=== PATIENT | female | born 1945 | race Two or more races ===

== ENCOUNTER 2019-11-17 05:10 | Emergency (ER) | payer OTHER, MEDICAID ==
[~2019-11-17] VITALS: Ht 154.9 cm; Wt 73.0 kg
[~2019-11-17 05:10] MED LIST: CHOL20007 PO; CLOP75TA28 PO; ESCI10TA53 PO; HYDR25TA4 PO; LEVO125T7 PO; LISI40TA; POTA10TA51 PO; SIMV-8
[2019-11-17 06:00] VITALS: BP 135/77
[2019-11-17] MEDS ORDERED: cefTRIAXone SOD 1,000 MG VL IM ONE (07:00)
== END 2019-11-17 08:03 | disposition home or self-care (01) ==
LOC: ER 05:10
DX: H66.92 Otitis media, unspecified, left ear (principal); J02.9 Acute pharyngitis, unspecified; E11.9 Type 2 diabetes mellitus without complications; E78.5 Hyperlipidemia, unspecified; Z98.61 Coronary angioplasty status
CPT/HCPCS: 71045; 96372; 99283; J0696

== ENCOUNTER 2020-02-25 07:37 | Inpatient (IN) | payer OTHER, MEDICAID ==
[~2020-02-25] VITALS: Ht 154.9 cm; Wt 65.4 kg
[~2020-02-25 07:37] MED LIST changes: -CHOL20007 PO; +CHOL500021 PO; -CLOP75TA28 PO; -ESCI10TA53 PO; +HYDR12.56 PO; -HYDR25TA4 PO; +IODIXANOL 320MG/ML 100ML BTL IV ONE; +LIDOCAINE 2%HCL (LOCAL ANESTH.) INJ 20ML MDV ONE; -LISI40TA; +LISI40TA PO; +NITR0.4S29 SL; -POTA10TA51 PO; -SIMV-8; +SIMV-8 PO
[2020-02-25] MEDS ORDERED: fentaNYL CITRATE 100 MCG/2 ML VL ONE (08:49)
[2020-02-25] MEDS ORDERED: ANGIOMAX 250 MG VIAL IV ONE ×2 (08:49→11:12)
[2020-02-25] MEDS ORDERED: MIDAZOLAM HCL 1MG/1ML-2 ML VIAL ONE (08:49)
[2020-02-25] MEDS ORDERED: SODIUM CHL 0.9% 50 ML ONE ×2 (08:49→11:12)
[2020-02-25] MEDS ORDERED: IOHEXOL 350 MG/ML 100ML IJ ONE ×3 (08:53→11:17)
[2020-02-25] MEDS ORDERED: CLOPIDOGREL 300 MG TAB ONE (10:57)
[2020-02-25] MEDS ORDERED: ASPirin 325 MG TAB ONE (10:57)
[2020-02-25] MEDS ORDERED: TICAGRELOR 90 MG TAB ONE (11:02)
[2020-02-25] MEDS ORDERED: PATIENTS OWN MEDICATION (Cholecalciferol (Vitamin D) 5,000 UNIT) PO SCH (12:00)
[2020-02-25] MEDS ORDERED: ACETAMINOPHEN 500 MG TAB PO PRN (12:00)
[2020-02-25] MEDS ORDERED: MORPHINE SULF INJ 2 MG/ML SYRINGE 1ML IV PRN (12:00)
[2020-02-25] MEDS ORDERED: NITROGLYCERIN 0.4 MG SL TAB SL PRN (12:00)
[2020-02-25] MEDS ORDERED: ONDANSETRON HCL 4 MG/2 ML VIAL IV PRN (12:00)
[2020-02-25] MEDS ORDERED: CHOLECALCIFEROL (VITD3) 1,000IU=25mCg TAB PO SCH (12:19)
[2020-02-25 17:00] VITALS: BP 121/71
[2020-02-25 22:00] VITALS: BP 113/65
[2020-02-25] MEDS ORDERED: ATORVASTATIN 20 MG TAB PO SCH (22:00)
[2020-02-26 05:00] VITALS: BP 109/64
[2020-02-26 05:28] LABS: Basophils # (auto) 0 10 ^3/uL (0-0.2); Basophils % (auto) 0.5 % (0.0-2.0); Lymphocytes # (auto) 0.9 10 ^3/uL (0.4-5.4); Mean Corpuscular Hemoglobin 26.5 pg (28.0-32.0); Monocytes # (auto) 0.4 10 ^3/uL (0-1.3); Neutrophils # (auto) 4.9 10 ^3/uL (1.6-8.6); White Blood Cell 6.3 10^3/uL (4.4-10.8)
[2020-02-26 05:30] LABS: Eosinophils # (auto) 0 10 ^3/uL (0-0.8); Eosinophils % (auto) 0.8 % (0.0-7.0); Hematocrit 35.4 % (36.0-46.0); Hemoglobin 11.4 g/dL (12.2-16.2); Lymphocytes % (auto) 14.4 % (10.0-50.0); Mean Corpuscular Hgb Conc. 32.3 g/dL (32.0-36.0); Neutrophils % (auto) 78.3 % (37.0-80.0); Platelet Count (auto) 213 10^3/uL (140-450); Red Blood Cells 4.32 10^6/uL (4.0-5.20); Red Cell Distribution Width 16.2 % (11.8-14.3)
[2020-02-26 05:51] LABS: Calcium 8.8 mg/dL (8.5-10.1)
[2020-02-26] MEDS ORDERED: LEVOTHYROXINE SODIUM 50 MCG TAB PO SCH (07:00)
[2020-02-26 09:00] VITALS: BP 111/61
[2020-02-26] MEDS ORDERED: PATIENTS OWN MEDICATION (Lisinopril 40 MG) PO SCH (10:00)
[2020-02-26] MEDS ORDERED: PATIENTS OWN MEDICATION (Simvastatin 20 MG) PO SCH (10:00)
[2020-02-26] MEDS ORDERED: LISINOPRIL 20 MG TAB PO SCH (10:00)
[2020-02-26] MEDS ORDERED: PATIENTS OWN MEDICATION (Levothyroxine Sodium 1 TAB) PO SCH (10:00)
[2020-02-26 11:30] VITALS: BP 111/61
== END 2020-02-26 12:25 | disposition home or self-care (01) | DRG 247 ==
LOC: CATH 07:37 → TELE-WESTW 07:38
PROVIDERS: ADMIT Internal Medicine Cardiovascular Disease; ATTEND Internal Medicine Cardiovascular Disease
PROC: 02713ZZ Dilation of Coronary Artery, Two Arteries, Percutaneous Approach (ICD-10-PCS; principal; 2020-02-26)
PROC: 027034Z Dilation of Coronary Artery, One Artery with Drug-eluting Intraluminal Device, Percutaneous Approach (ICD-10-PCS; 2020-02-26)
PROC: 02C03ZZ Extirpation of Matter from Coronary Artery, One Artery, Percutaneous Approach (ICD-10-PCS; 2020-02-26)
PROC: B2111ZZ Fluoroscopy of Multiple Coronary Arteries using Low Osmolar Contrast (ICD-10-PCS; 2020-02-26)
DX: T82.855A Stenosis of coronary artery stent, initial encounter (principal); I20.0 Unstable angina; I10 Essential (primary) hypertension; Y83.1 Surgical operation with implant of artificial internal device as the cause of abnormal reaction of the patient, or of later complication, without mention of misadventure at the time of the procedure; E78.5 Hyperlipidemia, unspecified; Z79.02 Long term (current) use of antithrombotics/antiplatelets; Z79.82 Long term (current) use of aspirin; Z91.041 Radiographic dye allergy status; Z98.61 Coronary angioplasty status; Z88.0 Allergy status to penicillin; Z88.5 Allergy status to narcotic agent; Z11.59 Encounter for screening for other viral diseases
CPT/HCPCS: 36415; 80048; 85025; 87635; 99152; 99153; C1874; G0378; J2250; Q9967

== ENCOUNTER 2020-12-18 12:08 | Emergency (ER) | payer OTHER, MEDICAID ==
[~2020-12-18] VITALS: Ht 154.9 cm; Wt 68.9 kg
[~2020-12-18 12:08] MED LIST changes: -IODIXANOL 320MG/ML 100ML BTL IV ONE; -LIDOCAINE 2%HCL (LOCAL ANESTH.) INJ 20ML MDV ONE; -LISI40TA PO; +LISI40TA11 PO
[2020-12-18] MEDS ORDERED: ONDANSETRON HCL 4 MG/2 ML VIAL IV ONE (12:15)
[2020-12-18] MEDS ORDERED: SODIUM CHLORIDE 0.9% 500 ML IVB ONE (12:15)
[2020-12-18] MEDS ORDERED: MORPHINE SULFATE 4 MG/ML SYR/VIAL IV ONE (12:15)
[2020-12-18 13:05] LABS: Albumin 3.8 g/dL (3.4-5.0); Calcium 8.8 mg/dL (8.5-10.1); Potassium 3.7 mmol/L (3.5-5.1)
[2020-12-18 13:06] LABS: Basophils # (auto) 0 10 ^3/uL (0-0.2); Basophils % (auto) 0.7 % (0.0-2.0); Eosinophils # (auto) 0.1 10 ^3/uL (0-0.8); Eosinophils % (auto) 1.5 % (0.0-7.0); Hematocrit 37.3 % (36.0-46.0); Hemoglobin 12.7 g/dL (12.2-16.2); Lymphocytes # (auto) 1.2 10 ^3/uL (0.4-5.4); Lymphocytes % (auto) 20.2 % (10.0-50.0); Mean Corpuscular Hemoglobin 31.2 pg (28.0-32.0); Mean Corpuscular Volume 91.6 fL (80.0-100.0); Monocytes # (auto) 0.4 10 ^3/uL (0-1.3); Monocytes % (auto) 6.2 % (0.0-12.0); Neutrophils # (auto) 4.1 10 ^3/uL (1.6-8.6); Neutrophils % (auto) 71.4 % (37.0-80.0); Nucleated Red Blood Cells % 0.1 %; Platelet Count (auto) 231 10^3/uL (140-450); Red Blood Cells 4.08 10^6/uL (4.0-5.20); Red Cell Distribution Width 13.3 % (11.8-14.3); White Blood Cell 5.8 10^3/uL (4.4-10.8)
[2020-12-18 13:08] LABS: BUN/Creatinine Ratio 16.4; Bilirubin, Total 0.4 mg/dL (0.2-1.0)
[2020-12-18 13:28] LABS: Urine Bacteria NONE SEEN /hpf (None Seen); Urine Blood TRACE /uL (Negative); Urine Specific Gravity 1.007 (1.001-1.035); Urine WBC 1 /hpf (0 - 5)
[2020-12-18 14:13] VITALS: BP 119/62
== END 2020-12-18 14:25 | disposition home or self-care (01) ==
LOC: ER 12:08
DX: K29.70 Gastritis, unspecified, without bleeding (principal); I10 Essential (primary) hypertension; E78.5 Hyperlipidemia, unspecified; Z79.899 Other long term (current) drug therapy; Z88.0 Allergy status to penicillin
CPT/HCPCS: 36415; 74176; 80053; 81001; 83690; 85025; 96361; 96374; 96375; 99285; J2270; J2405

== ENCOUNTER 2021-06-03 15:21 | Emergency (ER) | payer OTHER, MEDICAID ==
[~2021-06-03] VITALS: Ht 154.9 cm; Wt 71.2 kg
[2021-06-03] MEDS ORDERED: HYDROcodone-ACET 5/325MG TAB PO ONE (16:00)
[2021-06-03] MEDS ORDERED: IOHEXOL 350 MG/ML 100ML IJ ONE (16:20)
[2021-06-03 16:26] LABS: Basophils # (auto) 0.1 10 ^3/uL (0-0.2); Basophils % (auto) 0.6 % (0.0-2.0); Eosinophils # (auto) 0.1 10 ^3/uL (0-0.8); Eosinophils % (auto) 1.4 % (0.0-7.0); Hematocrit 37.5 % (36.0-46.0); Hemoglobin 12.7 g/dL (12.2-16.2); Lymphocytes # (auto) 1.5 10 ^3/uL (0.4-5.4); Lymphocytes % (auto) 16.8 % (10.0-50.0); Mean Corpuscular Hemoglobin 29.7 pg (28.0-32.0); Mean Corpuscular Hgb Conc. 33.7 g/dL (32.0-36.0); Mean Corpuscular Volume 88.1 fL (80.0-100.0); Monocytes # (auto) 0.6 10 ^3/uL (0-1.3); Monocytes % (auto) 7.3 % (0.0-12.0); Neutrophils # (auto) 6.5 10 ^3/uL (1.6-8.6); Neutrophils % (auto) 73.9 % (37.0-80.0); Red Blood Cells 4.26 10^6/uL (4.0-5.20); Red Cell Distribution Width 13.4 % (11.8-14.3); White Blood Cell 8.7 10^3/uL (4.4-10.8)
[2021-06-03 16:40] LABS: Alanine Aminotransferase 16 U/L (13-56); Albumin 3.6 g/dL (3.4-5.0); Anion Gap 8 (5-15); Aspartate Aminotransferase 9 U/L (15-37); BUN/Creatinine Ratio 21.2; Blood Urea Nitrogen 14 mg/dL (7-18); Calcium 8.8 mg/dL (8.5-10.1); Carbon Dioxide 25 mmol/L (21-32); Chloride 102 mmol/L (98-107); GFR African American 113 mL/min; GFR Non-African American 93 mL/min; Glucose 106 mg/dL (74-106); Potassium 3.7 mmol/L (3.5-5.1); Sodium 135 mmol/L (136-145)
[2021-06-03 16:44] LABS: Alkaline Phosphatase 99 U/L (45-117); Bilirubin, Total 0.4 mg/dL (0.2-1.0); Total Protein 6.8 g/dL (6.4-8.2)
[2021-06-03 17:20] LABS: Urine Bacteria NONE SEEN /hpf (None Seen); Urine Blood Negative /uL (Negative); Urine Mucus FEW (None Seen); Urine Specific Gravity 1.013 (1.001-1.035); Urine WBC <1 /hpf (0 - 5)
[2021-06-03 18:39] VITALS: BP 126/72
[2021-06-03] MEDS ORDERED: MECLIZINE HCL 25 MG TAB PO ONE (19:00)
[2021-06-03] MEDS ORDERED: ONDANSETRON ODT 4 MG TAB PO ONE (19:00)
== END 2021-06-03 18:59 | disposition home or self-care (01) ==
LOC: ER 15:21
DX: R42 Dizziness and giddiness (principal); R51.9 Headache, unspecified; G96.08 Other cranial cerebrospinal fluid leak; J44.9 Chronic obstructive pulmonary disease, unspecified; I25.10 Atherosclerotic heart disease of native coronary artery without angina pectoris; I10 Essential (primary) hypertension; I25.2 Old myocardial infarction; E78.5 Hyperlipidemia, unspecified
CPT/HCPCS: 36415; 70496; 70498; 71045; 80053; 81001; 84484; 85025; 93005; 99285; J8597; Q0162; Q9967

== ENCOUNTER 2023-07-29 10:18 | Day surgery (SDC) | payer OTHER ==
[~2023-07-29] VITALS: Ht 154.9 cm; Wt 68.0 kg
[~2023-07-29 10:18] MED LIST changes: +HYDR-4902 PO; -HYDR12.56 PO; +HYDR12.59 PO; +LEVO25TA6 PO; +LISI-275 PO; -LISI40TA11 PO; +LISI40TA16 PO; -SIMV-8 PO; +SIMV10TA20 PO; +SIMV20TA20 PO; +ZOFR4T PO
[2023-07-29] MEDS ORDERED: CLINDAMYCIN 600MG IV 50 ML IV ONE (13:12)
[2023-07-29] MEDS ORDERED: SODIUM CHLORIDE LOCK 10 ML ONE (13:38)
[2023-07-29] MEDS ORDERED: DexAMETHasone SOD PHOS 4 MG/1ML SDV INJ ONE (13:39)
[2023-07-29] MEDS ORDERED: LIDOCAINE 1% HCL (LOCAL ANESTH.) INJ 20ML MDV ONE (13:40)
[2023-07-29] MEDS ORDERED: BUPIVACAINE 0.5% P/F INJ 10 ML VIAL ONE (13:48)
[2023-07-29] MEDS ORDERED: ONDANSETRON HCL 4 MG/2 ML VIAL ONE (13:51)
[2023-07-29] MEDS ORDERED: fentaNYL CITRATE 100 MCG/2 ML VL ONE (13:51)
[2023-07-29] MEDS ORDERED: DexAMETHasone SOD PHOS 10MG/1ML VIAL INJ ONE (13:51)
[2023-07-29] MEDS ORDERED: SODIUM CHLORIDE LOCK 20 ML ONE (13:51)
[2023-07-29] MEDS ORDERED: PROPOFOL 10 MG/ML 20 ML IV ONE (13:51)
[2023-07-29] MEDS ORDERED: MIDAZOLAM HCL 2MG/2ML 2ml VIAL (1mg/ml) ONE (13:51)
[2023-07-29] MEDS ORDERED: BUPIVACAINE HCL 50 ML ONE (14:00)
[2023-07-29] MEDS ORDERED: EPINEPHrine HCL 1 MG/1 ML AMP ONE (14:00)
[2023-07-29] MEDS ORDERED: HYDROmorphone HCL 2 MG/ML VL/or syr IV PRN ×2 (14:15)
[2023-07-29] MEDS ORDERED: MORPHINE SULFATE INJ 2 MG/ml SYRG IV PRN (14:15)
[2023-07-29] MEDS ORDERED: METOCLOPRAMIDE HCL 5MG/ml INJ 2ml VIAL IV PRN (14:15)
[2023-07-29 15:36] VITALS: TEMP 98.2; O2SAT 94
[2023-07-29 17:59] VITALS: BP 128/71; PULSE 68; RESP 23; O2SAT 99
== END 2023-07-29 15:36 | disposition home or self-care (01) ==
LOC: SUR 10:18 → MERGE 10:18 → SUR 15:36
PROVIDERS: ATTEND Orthopaedic Surgery Sports Medicine
DX: S83.272A Complex tear of lateral meniscus, current injury, left knee, initial encounter (principal); M94.262 Chondromalacia, left knee; X58.XXXA Exposure to other specified factors, initial encounter; Y93.89 Activity, other specified; Y92.89 Other specified places as the place of occurrence of the external cause; Y99.8 Other external cause status; I10 Essential (primary) hypertension; I25.2 Old myocardial infarction; J44.9 Chronic obstructive pulmonary disease, unspecified; E03.9 Hypothyroidism, unspecified; Z88.0 Allergy status to penicillin; Z88.8 Allergy status to other drugs, medicaments and biological substances; Z82.49 Family history of ischemic heart disease and other diseases of the circulatory system; Z83.3 Family history of diabetes mellitus; Z95.5 Presence of coronary angioplasty implant and graft; Z79.899 Other long term (current) drug therapy; Z79.890 Hormone replacement therapy; Z98.890 Other specified postprocedural states
CPT/HCPCS: 29881; J0171; J1100; J2001; J2250; J2405; J2704; J3010; J3490

== ENCOUNTER 2024-10-08 14:19 | Emergency (ER) | payer OTHER, MEDICAID ==
[~2024-10-08] VITALS: Ht 154.9 cm; Wt 71.8 kg
[~2024-10-08 14:19] MED LIST changes: +ACET-1080 PO
--- NOTE | 2024-10-08 14:30 | ECG ---
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
[2024-10-08 14:46] LABS: Basophils # (auto) 0.1 10 ^3/uL (0-0.2); Basophils % (auto) 0.9 % (0.0-2.0); Eosinophils # (auto) 0.1 10 ^3/uL (0-0.8); Eosinophils % (auto) 1.9 % (0.0-7.0); Hematocrit 37.3 % (36.0-46.0); Hemoglobin 12.6 g/dL (12.2-16.2); Lymphocytes # (auto) 1.5 10 ^3/uL (0.4-5.4); Lymphocytes % (auto) 23.1 % (10.0-50.0); Mean Corpuscular Hemoglobin 29.8 pg (28.0-32.0); Mean Corpuscular Hgb Conc. 33.7 g/dL (32.0-36.0); Mean Corpuscular Volume 88.4 fL (80.0-100.0); Monocytes # (auto) 0.5 10 ^3/uL (0-1.3); Monocytes % (auto) 7.6 % (0.0-12.0); Neutrophils # (auto) 4.2 10 ^3/uL (1.6-8.6); Neutrophils % (auto) 66.5 % (37.0-80.0); Nucleated Red Blood Cells % 0.1 %; Platelet Count (auto) 227 10^3/uL (140-450); Red Blood Cells 4.22 10^6/uL (4.0-5.20); Red Cell Distribution Width 13.4 % (11.8-14.3); White Blood Cell 6.3 10^3/uL (4.4-10.8)
[2024-10-08 15:08] LABS: Alanine Aminotransferase 11 U/L (7-40); Albumin 4.2 g/dL (3.2-4.8); Anion Gap 7 (5-15); Aspartate Aminotransferase 13 U/L (13-40); Calcium 9.9 mg/dL (8.7-10.4); Carbon Dioxide 27 mmol/L (20-31); Chloride 105 mmol/L (98-107); Sodium 139 mmol/L (136-145)
[2024-10-08 15:09] LABS: Bilirubin, Total 0.4 mg/dL (0.2-1.0); Total Protein 6.4 g/dL (5.7-8.2)
[2024-10-08 15:11] LABS: Alkaline Phosphatase 118 U/L (46-116); Blood Urea Nitrogen 8 mg/dL (9-23); Glucose 128 mg/dL (74-106); Potassium 3.3 mmol/L (3.5-5.1)
--- NOTE | 2024-10-08 15:32 | ED.PDOC ---
HPI Comments 79y F who presents to the ED for chief complaint of chest pain. Pt states she has been chest pain since earlier this AM, pressure like in nature, substernal in location, radiating to the L axilla, with no associated exacerbating or relieving factors. Pt has associated shortness of breath and headache but otherwise denies any other symptoms. Pt in the ED, able to speak in full sentences. Pt in the ED, has stable vitals with temp of 97.9 F and 02 sat 97% on room air with all other vitals in normal range. Pt otherwise denies any other symptoms at this time. Chief Complaint: Chest Pain Time Seen by MD: 15:27 Primary Care Provider: DR DARCY CUENCA Reviewed Notes: Nurses Notes Allergies: Coded Allergies: Penicillins (Verified Allergy, Unknown, 02/22/20) Tramadol (Verified Allergy, Unknown, 02/22/20) Uncoded Allergies: BREZTRI (Allergy, Unknown, 08/12/23) Home Meds Active Scripts Acetaminophen (Tylenol 8 Hour Arthritis) 650 Mg Tab, 650 MG PO TID, #30 TAB Prov:RONNIE KABA 01/09/24 Ondansetron Odt 4MG Tab (ZOFRAN PO) 4 Mg Tb, 4 MG PO Q8HPRN PRN, #15 TAB 0 Refills ODT TAB-DISSOLVE IN MOUTH, THEN SWALLOW Prov:AMAURY JONES 04/08/23 Hydrocodone-Acetaminophen (Hydrocodone Bitartrate/AC 5-325 mg) 1 Tab Tab, 1 TAB PO Q4HPRN PRN, #15 TAB 0 Refills Prov:AMAURY JONES 04/08/23 Reported Medications Hydrochlorothiazide (Hydrochlorothiazide) Unknown Strength Cap, PO DAILY for 30 Days, MG 07/24/23 Nitroglycerin (NTROSTAT SUBLINGUAL) Unknown Strength Sl, SL PRN, TAB *MAY REPEAT EVERY 5 MINUTES X 3 TOTAL IF NO RELIEF, INITIATE ANALGESIC THERAPY. NOTIFY PHYSICIAN *Do not crush. 07/24/23 Simvastatin (Simvastatin) Unknown Strength Tab, PO DAILY for 30 Days, MG 07/24/23 Levothyroxine Sodium (Levothyroxine Sodium) Unknown Strength Tab, PO QAM, MCG 07/24/23 Lisinopril (Lisinopril) Unknown Strength Tab, PO DAILY for 30 Days, MG 07/24/23 Cholecalciferol (VITAMIN D) 5,000 Unit Tab, 5000 UNIT PO QWEEKLY, TAB 02/22/20 Lisinopril (Lisinopril) 40 Mg Tab, 40 MG PO DAILY for 30 Days, MG 02/22/20 Nitroglycerin (Nitrostat) 0.4 Mg Sub, 0.4 MG SL, INJ 02/22/20 Simvastatin (Simvastatin) 20 Mg Tab, 20 MG PO DAILY for 30 Days 02/22/20 Hydrochlorothiazide (Hydrochlorothiazide) 12.5 Mg Cap, 1 CAP PO DAILY, #30 CAP 5 Refills 02/22/20 Levothyroxine Sodium (Levothyroxine Sodium) 125 Mcg Tab, 1 TAB PO DAILY, #30 TAB 5 Refills 03/26/16 Mode of Arrival: Ambulatory Past Medical History PAST MEDICAL HISTORY: Arthritis, CAD, COPD, High Lipids, HTN, FL, Thyroid Surgical History: , PTCA, 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 Family History Family History: Reviewed,noncontributory to illness, Family hx of DM, Family hx of HTN Social History Smoker: Non-Smoker Alcohol: Denies ETOH Use Drugs: Denies Drug Use Lives In: Home Constitutional: denies: chills, diaphoresis, fatigue, fever, malaise, sweats, weakness, others EENTM: denies: blurred vision, double vision, ear bleeding, ear discharge, ear drainage, ear pain, ear ringing, eye pain, eye redness, hearing loss, mouth pain, mouth swelling, nasal discharge, nose bleeding, nose congestion, nose pain, photophobia, tearing, throat pain, throat swelling, voice changes, others Respiratory: denies: cough, hemoptysis, orthopnea, SOB at rest, shortness of breath, SOB with excertion, stridor, wheezing, others Cardiovascular: reports: chest pain; denies: dizzy spells, diaphoresis, Dyspnea on exertion, edema, irregular heart beat, left arm pain, lightheadedness, palpitations, PND, syncope, others Gastrointestinal: denies: abdomen distended, abdominal pain, blood streaked bowels, constipated, diarrhea, dysphagia, difficulty swallowing, hematemesis, melena, nausea, poor appetite, poor fluid intake, rectal bleeding, rectal pain, vomiting, others Genitourinary: denies: abnormal vagina bleeding, burning, dyspareunia, dysuria, flank pain, frequency, hematuria, incontinence, pain, , vagina discharge, urgency, others Neurological: denies: dizziness, fainting, headache, left sided numbness, left sided weakness, numbness, paresthesia, pre-existing deficit, right sided numbness, right sided weakness, seizure, speech problems, tingling, tremors, weakness, others Musculoskeletal: denies: back pain, gout, joint pain, joint swelling, muscle pain, muscle stiffness, neck pain, others Integumetry: denies: bruises, change in color, change in hair/nails, dryness, laceration, lesions, lumps, rash, wounds, others Allergic/Immunocompromised: denies: Difficulty Healing, Frequent Infections, Hives, Itching, others Hematologic/Lymphatic: denies: anemia, blood clots, easy bleeding, easy bruising, swollen glands, others Endocrine: denies: excessive hunger, excessive sweating, excessive thirst, excessive urination, flushing, intolerance to cold, intolerance to heat, unexplained weight gain, unexplained weight loss, others Psychiatric: denies: anxiety, bipolar disorder, depression, hopeless, panic disorder, schizophrenia, sleepless, suicidal, others All Other Systems: Reviewed and Negative Physical Exam General Appearance: No Apparent Distress, Normal HEENT: Normal ENT Inspection, Pharynx Normal, TMs Normal Neck: Full Range of Motion, Non-Tender, Normal, Normal Inspection Respiratory: Chest Non-Tender, Lungs Clear, No Accessory Muscle Use, No Respira tory Distress, Normal Breath Sounds Cardiovascular: No Edema, No JVD, No Murmur, No Gallop, Normal Peripheral Pulses, Regular Rate/Rhythm Breast Exam: Deferred Gastrointestinal: No Organomegaly, Non Tender, No Pulsatile Mass, Normal Bowel Sounds, Soft Genitalia: Deferred Pelvic: Deferred Rectal: Deferred Extremities: No calf tenderness, Normal capillary refill, Normal inspection, Normal range of motion, Non-tender, No pedal edema Musculoskeletal : Apperance: Normal Neurologic: Alert, sql data analyst II-XII nml as Tested, No Motor Deficits, Normal Affect, Normal Mood, No Sensory Deficits Cerebellar Function: Normal Reflexes: Normal Skin: Dry, Normal Color, Warm Lymphatic: No Adenopathy Was a procedure done? Was a procedure done?: No CP Differential Dx Differential Diagnosis: A-fib, A-Flutter, Angina, Anxiety / Panic Attack, Atrial Dysrhythmia, FL, Pulmonary Embolus, PVC's Other Differential Diagnosis acute coronary syndrome. X-Ray, Labs, Meds, VS Vital Signs Date Time Temp Pulse Resp B/P (MAP) Pulse Ox O2 Delivery O2 Flow Rate FiO2 10/08/24 18:51 98.0 67 16 140/76 (97) 97 98.0 10/08/24 18:41 140/76 10/08/24 17:23 64 17 96 Room Air 10/08/24 17:23 98.7 64 17 140/74 (96) 96 98.7 10/08/24 15:20 64 10/08/24 14:37 97.9 71 20 120/70 (87) 97 10/08/24 14:25 78 Lab Test 10/08/24 17:30 10/08/24 15:27 10/08/24 14:32 Range/Units Troponin I High Sensitivity 20 18 18 </=34 ng/L White Blood Count 6.3 4.4-10.8 10^3/uL Red Blood Count 4.22 4.0-5.20 10^6/uL Hemoglobin 12.6 12.2-16.2 g/dL Hematocrit 37.3 36.0-46.0 % Mean Corpuscular Volume 88.4 80.0-100.0 fL Mean Corpuscular Hemoglobin 29.8 28.0-32.0 pg Mean Corpuscular Hemoglobin Concent 33.7 32.0-36.0 g/dL Red Cell Distribution Width 13.4 11.8-14.3 % Platelet Count 227 140-450 10^3/uL Mean Platelet Volume 8.7 6.9-10.8 fL Neutrophils (%) (Auto) 66.5 37.0-80.0 % Lymphocytes (%) (Auto) 23.1 10.0-50.0 % Monocytes (%) (Auto) 7.6 0.0-12.0 % Eosinophils (%) (Auto) 1.9 0.0-7.0 % Basophils (%) (Auto) 0.9 0.0-2.0 % Neutrophils # (Auto) 4.2 1.6-8.6 10 ^3/uL Lymphocytes # (Auto) 1.5 0.4-5.4 10 ^3/uL Monocytes # (Auto) 0.5 0-1.3 10 ^3/uL Eosinophils # (Auto) 0.1 0-0.8 10 ^3/uL Basophils # (Auto) 0.1 0-0.2 10 ^3/uL Nucleated Red Blood Cells 0.1 % Sodium Level 139 136-145 mmol/L Potassium Level 3.3 L 3.5-5.1 mmol/L Chloride Level 105 98-107 mmol/L Carbon Dioxide Level 27 20-31 mmol/L Anion Gap 7 5-15 Blood Urea Nitrogen 8 L 9-23 mg/dL Creatinine 0.80 0.550-1.02 mg/dL Glomerular Filtration Rate Calc 76 >90 mL/min BUN/Creatinine Ratio 10.0 10.0-20.0 Serum Glucose 128 H 74-106 mg/dL Calcium Level 9.9 8.7-10.4 mg/dL Total Bilirubin 0.4 0.2-1.0 mg/dL Aspartate Amino Transferase (AST) 13 13-40 U/L Alanine Aminotransferase (ALT) 11 7-40 U/L Alkaline Phosphatase 118 H 46-116 U/L Total Protein 6.4 5.7-8.2 g/dL Albumin 4.2 3.2-4.8 g/dL Current Medications Medications (Trade) Dose Ordered Sig/Courtney Route Start Time Stop Time Status Last Admin Aspirin 325 mg ONCE ONCE PO 10/08/24 18:15 10/08/24 18:17 DC 10/08/24 18:33 Nitroglycerin (Ntrostat Sublingual) 0.4 mg ONCE ONCE SL 10/08/24 18:15 10/08/24 18:17 DC 10/08/24 18:41 Time of 1ST Reevaluation: 16:00 Reevaluation 1ST: Unchanged Time of 2ND Reevaluation: 16:55 Reevaluation 2ND: Improved Patient Education/Counseling: Diagnosis, Treatment, Prognosis, Need For Follow Up Family Education/Counseling: No Family Present Additional Information - I reviewed the following notes from patient's past medical encounters:admission in 2019 for card cath, 2018 for cad - The following tests were ordered, and results were reviewed by me: (Labs, X- Ray, EKG): EKG x 3, troponin x3, CBC, CMP, - Additional information was gathered from interviewing the following independent Historian: (Family, Other Providers, EMT): none - I reviewed and agreed with the following test results read by other provider: (X-ray, CT, US):cxr by radiology - I discussed treatments and results with medical personnel and: (consultants) pt does have a significant cardiac history and multiple risk factors. she has not had bryan pain since the last time she had the cardiac cath. her workup does not support NSTEMI or STEMI, but her history is highly suspicious for unstable angina. she will be admitted for cardiac workup Departure 1 Departure Time of Disposition: 16:57 Impression: Primary Impression: Unstable angina Disposition: 09 ADMITTED INPATIENT Admit to: Tele Condition: Serious Critical Care Note Critical Care Time?: Yes (1 hr-critical care time only) Critical care comment: due to concerns for patient's condition deterioration, the care required my highest attention and readiness to intervene. i spoke to the family, patient, reviewed any records, ordered the appropriate tests and treatments, reviewed the results, response and communicated with medical personnel, formulated a plan of care. critical care time does not include any procedures Stability Stability form required: No Heart Score Heart Score: Heart Score Response (Comments) Value History Highly Suspicious 2 EKG Repolarization Disturb 1 Age >65 2 Risk Factors 1 or 2 risk factors 1 Troponin Normal limit 0 Total 6 I personally scribed for KRYS ESPARZA MD ([email or web address]) on 10/08/24 at 15:32. Electronically submitted by Shelby Leigh ([email or web address]). KRYS ESPARZA MD Oct 08, 2024 15:32
--- NOTE | 2024-10-08 16:36 | DVH ---
XY CHEST PORTABLE, HISTORY: cp COMPARISON: CHEST PORTABLE on DOS: 06/03/21, CHEST PORTABLE on DOS: 11/17/19 CHEST PORTABLE on DOS: 06/03/21, CHEST PORTABLE on DOS: 11/17/19 TECHNICAL DATA: 1 view of the chest was obtained. FINDINGS: Lines and tubes: None Cardiomediastinal silhouette: normal Pulmonary vasculature: normal Lung expansion: normal Lung airspace: normal Lung interstitium: normal Pleura: normal Pneumothorax: no Bones: Unremarkable Other: no IMPRESSION: No acute intrathoracic abnormality.
--- NOTE | 2024-10-08 17:34 | ECG ---
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
[2024-10-08] MEDS: ASPirin 325 MG TAB PO ONE (18:33)
[2024-10-08] MEDS: NITROGLYCERIN 0.4 MG SL TAB SL ONE (18:41)
[2024-10-08 18:51] VITALS: BP 140/76; PULSE 67; RESP 16; TEMP 98; O2SAT 97
--- NOTE | 2024-10-08 19:31 | DVHDS2 ---
Discharge Summary Date of Admission Date of Discharge: Oct 08, 2024 Labs/Diagnostic Data: Laboratory Results Test 10/08/24 17:30 10/08/24 14:32 Troponin I High Sensitivity 20 ng/L (</=34) White Blood Count 6.3 10^3/uL (4.4-10.8) Red Blood Count 4.22 10^6/uL (4.0-5.20) Hemoglobin 12.6 g/dL (12.2-16.2) Hematocrit 37.3 % (36.0-46.0) Mean Corpuscular Volume 88.4 fL (80.0-100.0) Mean Corpuscular Hemoglobin 29.8 pg (28.0-32.0) Mean Corpuscular Hemoglobin Concent 33.7 g/dL (32.0-36.0) Red Cell Distribution Width 13.4 % (11.8-14.3) Platelet Count 227 10^3/uL (140-450) Mean Platelet Volume 8.7 fL (6.9-10.8) Neutrophils (%) (Auto) 66.5 % (37.0-80.0) Lymphocytes (%) (Auto) 23.1 % (10.0-50.0) Monocytes (%) (Auto) 7.6 % (0.0-12.0) Eosinophils (%) (Auto) 1.9 % (0.0-7.0) Basophils (%) (Auto) 0.9 % (0.0-2.0) Neutrophils # (Auto) 4.2 10 ^3/uL (1.6-8.6) Lymphocytes # (Auto) 1.5 10 ^3/uL (0.4-5.4) Monocytes # (Auto) 0.5 10 ^3/uL (0-1.3) Eosinophils # (Auto) 0.1 10 ^3/uL (0-0.8) Basophils # (Auto) 0.1 10 ^3/uL (0-0.2) Nucleated Red Blood Cells 0.1 % Sodium Level 139 mmol/L (136-145) Potassium Level 3.3 mmol/L (3.5-5.1) Chloride Level 105 mmol/L (98-107) Carbon Dioxide Level 27 mmol/L (20-31) Anion Gap 7 (5-15) Blood Urea Nitrogen 8 mg/dL (9-23) Creatinine 0.80 mg/dL (0.550-1.02) Glomerular Filtration Rate Calc 76 mL/min (>90) BUN/Creatinine Ratio 10.0 (10.0-20.0) Serum Glucose 128 mg/dL (74-106) Calcium Level 9.9 mg/dL (8.7-10.4) Total Bilirubin 0.4 mg/dL (0.2-1.0) Aspartate Amino Transferase (AST) 13 U/L (13-40) Alanine Aminotransferase (ALT) 11 U/L (7-40) Alkaline Phosphatase 118 U/L (46-116) Total Protein 6.4 g/dL (5.7-8.2) Albumin 4.2 g/dL (3.2-4.8) Other Laboratory Tests 10/08/24 14:32 Brief Hx & Hospital Course: Patient is a 79-year-old female with past medical history of CAD with three stent placement who presents with midsternal chest pain that began today while sitting watching TV. Patient states that the pain lasted approximately 45 minutes. She attempted to take a sublingual nitroglycerin but states her chest pain was not relieved. She presented to the ER for further evaluation. In the ER, vitals were within normal limits. EKG was done which did not show any ST changes. Troponin level was done and was not elevated x3. Patient received nitroglycerin in the ER but again did not have any relief of her chest pain. On clinical examination, the patient appeared comfortable with no signs of distress. Patient's chest pain was reproducible on palpation. Patient noted that the chest pain returns when she has coughing episodes. She notes that she has had a dry cough for the past three days without any fever or chills. Chest x-ray was done which was negative for any acute abnormalities. Flu and COVID were checked. Patient states that she can not take any oral Tylenol or NSAIDs given a history of stomach ulcer. Patient's chest pain is consistent with a musculoskeletal etiology. Patient is to apply Voltaren gel to the site as needed for relief. Patient was educated on the difference between musculoskeletal and cardiac related chest pain. I informed the patient that if she has recurrence of this chest pain with relief of nitroglycerin or worsening in nature, that she should return to the ER for further evaluation. Patient was monitored for several hours prior to discharge with no worsening of symptoms. Patient was also discharged on benzonatate Tessalon Perles for her cough. Condition at Discharge: Good Final Diagnosis/Problems List Musculoskeletal Chest Pain Secondary Diagnosis: History of CAD Discharge Disposition: AMA Discharge Statement: "Patient was advised to return to the ER or call 911 if any headaches, dizziness, shortness of breath, chest pain, abdominal pain, bleeding, fevers, or worsening of medical condition. Patient was counseled about treatment plan, medications, possible side effects, patientverbalized understanding. All questions were answered to the best of my ability. This discharge took greater then 30 minutes in planning, reviewing documentation, counseling the patient, and discussing with other team members." ASSESSMENT ASSESSMENT Assessment NANNETTE CURRY DO Oct 08, 2024 19:31
[2024-10-08] MEDS ORDERED: BENZ100C97 PO (19:35)
[2024-10-08] MEDS ORDERED: DICL1GEL59 EX (19:35)
[2024-10-08 21:11] LABS: COVID19 ANTIGEN SOFIA FIA NEGATIVE (NEGATIVE)
[2024-10-08 21:25] LABS: Rapid Influenza A Negative (Negative)
[2024-10-08 21:27] LABS: Rapid Influenza B Positive (Negative)
== END 2024-10-08 20:15 | disposition left against medical advice (07) ==
LOC: ER 14:19
DX: I25.110 Atherosclerotic heart disease of native coronary artery with unstable angina pectoris (principal); I10 Essential (primary) hypertension; E78.5 Hyperlipidemia, unspecified; E03.9 Hypothyroidism, unspecified; J44.9 Chronic obstructive pulmonary disease, unspecified; Z98.890 Other specified postprocedural states; Z79.899 Other long term (current) drug therapy; Z88.0 Allergy status to penicillin; Z88.6 Allergy status to analgesic agent; Z88.8 Allergy status to other drugs, medicaments and biological substances; Z20.822 Contact with and (suspected) exposure to COVID-19
CPT/HCPCS: 36415; 71045; 80053; 84484; 85025; 87426; 87804; 93005